=== PATIENT | female | born 1955 | race Caucasian/White ===

== ENCOUNTER 2017-06-12 06:58 | Day surgery (SDC) | payer BC ==
[~2017-06-12 06:58] MED LIST: Metoclopramide 10 MG/2 ML SDV IV PRN; Sodium Chloride 0.9% 1,000 ML IV SCH; Sodium Chloride 0.9% 10 ML Syringe FLUSH PRN
[2017-06-12 09:40] VITALS: BP 157/99
--- NOTE | 2017-06-12 18:21 | OR ---
DATE OF OPERATION: 06/12/2017 PREOPERATIVE DIAGNOSIS: Screening colonoscopy. POSTOPERATIVE DIAGNOSIS: Normal colonoscopy. OPERATION: Screening colonoscopy. COMPLICATIONS: None. DRAINS: None. SPECIMENS: None. ESTIMATED BLOOD LOSS: Zero. ANESTHESIA: General propofol anesthesia. INDICATION: Ms. Lemos is a 62-year-old female who is considered high risk for colon cancer. She has a first-degree relatives with colon cancer and currently she is asymptomatic. The above-mentioned procedure was explained. The risks, benefits, and complications were explained. The patient understood and agreed and was brought to the operating room. DESCRIPTION OF PROCEDURE: The patient was brought to the operating room and placed in the left lateral decubitus position on the operating room table. Satisfactory general propofol anesthesia was administered. We began by performing a rectal examination, which revealed some external skin tags suggestive of previous external hemorrhoids. The remainder of the examination is within normal limits. I then placed the endoscope by finger introduction into the rectum and subsequently advanced to the level of the cecum. The cecum was identified by the appendiceal orifice, the ileocecal valve, and the cecal strap. Next, careful evaluation of the mucosa was performed. On withdrawal, there was no telangiectasias, no polyps, no neoplastic growths, and no diverticula noted. I then performed a retroflexion maneuver within the rectum and this was within normal limits as well. We decompressed the colon and subsequently withdrew the endoscope. The patient tolerated the procedure well. There were no complications. Instrument count was correct. The patient was woken in the OR and taken to the PACU for recovery. Recommend followup colonoscopy in five years. AILYN /[id number]
== END 2017-06-12 11:15 | disposition home or self-care (01) ==
LOC: LB.SDS 06:58
PROVIDERS: ATTEND Surgery
DX: Z12.11 Encounter for screening for malignant neoplasm of colon (principal); E11.9 Type 2 diabetes mellitus without complications; I10 Essential (primary) hypertension; I48.91 Unspecified atrial fibrillation; J44.9 Chronic obstructive pulmonary disease, unspecified; Z80.0 Family history of malignant neoplasm of digestive organs; Z79.84 Long term (current) use of oral hypoglycemic drugs; Z79.899 Other long term (current) drug therapy; Z79.01 Long term (current) use of anticoagulants; Z88.8 Allergy status to other drugs, medicaments and biological substances; Z86.73 Personal history of transient ischemic attack (TIA), and cerebral infarction without residual deficits
CPT/HCPCS: 45378; 82962; J7040; J7030